=== PATIENT | female | born 1990 | race African-American/Black ===

== ENCOUNTER 2017-02-20 15:43 | Emergency (ER) | payer BC, SELFPAY ==
[2017-02-20] MEDS ORDERED: Benzocaine 20% Spray 60 ML CAN ONE ×2 (16:10→16:13)
== END 2017-02-20 16:20 | disposition home or self-care (01) ==
LOC: BURERS 15:43
DX: K08.89 Other specified disorders of teeth and supporting structures (principal)
CPT/HCPCS: 41800